=== PATIENT | male | born 1985 | race Hispanic/Latino ===

== ENCOUNTER 2022-08-23 13:40 | Emergency (ER) | payer OTHER ==
[~2022-08-23] VITALS: Ht 172.7 cm; Wt 130.2 kg
[2022-08-23] MEDS ORDERED: MEDROL4 MG PO (14:11)
[2022-08-23] MEDS ORDERED: IBUPROFEN800 MG PO (14:11)
[2022-08-23] MEDS ORDERED: KETOROLAC TROMETHAMINE 60 MG/2 ML VIAL IM ONE (14:15)
[2022-08-23] MEDS ORDERED: DEXAMETHASONE SOD PHOS 10 MG/1 ML VIAL IM ONE (14:15)
[2022-08-23] MEDS ORDERED: DEXAMETHASONE SOD PHOS INJ 4 MG/ML SDV ONE (14:22)
[2022-08-23] MEDS ORDERED: KETOROLAC TROMETHAMINE 60 MG/2 ML VIAL ONE (14:22)
== END 2022-08-23 14:58 | disposition home or self-care (01) ==
LOC: FSED 13:53
DX: G44.209 Tension-type headache, unspecified, not intractable (principal); E11.9 Type 2 diabetes mellitus without complications
CPT/HCPCS: 99283; J1100 ×2; J1885